=== PATIENT | male | born 1955 | race Caucasian/White ===

== ENCOUNTER 2022-03-03 13:36 | Inpatient (IN) | payer MEDICARE ==
[2022-03-03] MEDS ORDERED: Propofol 1,000 MG/100 ML VIAL IV ONE (13:42)
[2022-03-03] MEDS ORDERED: niCARdipine 25 MG/10 ML VIAL ONE (13:48)
[2022-03-03 13:57] LABS: #Eosinphils 0.2 thou/uL (0.0-0.7); #Lymphocytes 1.6 thou/uL (1.20-3.40); #Neutrophils 10.9 thou/uL (1.40-6.50); %Basophils 0.2 % (0.0-1.0); %Eosinophils 1.2 % (0.0-10.0); %Lymphocytes 11.4 % (21.0-51.0); %Monocytes 7.6 % (0.0-10.0); %Neutrophils 79.7 % (42.0-75.0); Hemoglobin 11.7 g/dL (14.0-18.0); Mean Corpuscular HGB CONC 32.8 g/dL (32.0-36.0); Mean Corpuscular Volume 94.4 fl (78.0-98.0); Mean Platelet Volume 7.9 fL (7.4-10.4); Platelet Count 267 thou/uL (130-400); RBC Distribution Width 11.8 % (11.5-14.5); Red Blood Cell (RBC) Count 3.77 mill/uL (4.70-6.10); White Blood Cell (WBC) Count 13.6 thou/uL (4.8-10.8)
[2022-03-03] MEDS ORDERED: Iopamidol-370 76% 500 ML 1 ML ONE (14:05)
[2022-03-03 14:11] LABS: PTT 29.6 sec (22.9-36.1); Prothrombin Time 13.7 sec (12.0-14.7)
[2022-03-03 14:28] LABS: ALT (SGPT) 33 U/L (8-55); AST (SGOT) 35 U/L (5-34); Alkaline Phosphatase 89 U/L (40-110); Anion Gap 17 mmol/L (10-20); BUN (Urea Nitrogen) 21 mg/dL (8.4-25.7); Bilirubin, Total 0.8 mg/dL (0.2-1.2); Calc. Creatinine Clearance 0 mL/min (70-130); Carbon Dioxide 22 mmol/L (23-31); Chloride 97 mmol/L (98-107); Estimated GFR 79; Globulin 2.9 g/dL (2.4-3.5); Glucose 287 mg/dL (80-115); Potassium 4.1 mmol/L (3.5-5.1); Protein, Total 6.9 g/dL (5.8-8.1); Sodium 132 mmol/L (136-145)
[2022-03-03 14:43] LABS: Actual Bicarbonate (HCO3a) 24.2 mEq/L (22-28); Base Excess (BEa) 0.5 mEq/L (-2.0 to +3.0); CO2 Tension 35.6 mmHg (35.0-45.0); Calcium, Ionized (arterial) 1.07 mmol/L (1.12-1.30); Carboxyhemoglobin (COHb) 0.3 gm% (0.0-3.0); Hemoglobin (Hb) 11.8 g/dL (14.0-18.0); O2 Tension (PaO2), arterial 111.1 mmHg (> 80.0); Potassium - ABG Lab 3.86 mmol/L (3.70-5.30); pH, Arterial 7.45 (7.35-7.45)
[2022-03-03 14:44] LABS: Puncture Site RBA
[2022-03-03] MEDS ORDERED: Ondansetron PF 4 MG/2 ML Vial IVP PRN (14:58)
[2022-03-03] MEDS ORDERED: Morphine 4 MG/ML VIAL SLOW IVP PRN (15:01)
[2022-03-03 15:14] LABS: SARS-CoV-2 NAA Rapid Test Not Detected (NotDetected)
[2022-03-03 15:42] LABS: Bacteria/HPF None Seen HPF (None Seen); Bilirubin Negative (Negative); Blood, Urine Negative (Negative); Clarity Clear (Clear); Glucose, Urine (Dipstick) 500 mg/dL (Negative); Ketone, Urine Trace mg/dL (Negative); Leukocyte Negative Leu/uL (Negative); Nitrite Negative (Negative); Protein, Urine (Dipstick) 50 mg/dL (Neg-Trace); RBC/HPF 0-3 HPF (0-3); Specific Gravity, Urine 1.011 (1.002-1.036); Squamous Epithelial None Seen HPF (0-3); Urobilinogen Normal mg/dL (Less than 2); WBC/HPF 0-3 HPF (0-3); pH, Urine 7.5 (5.0-9.0)
[2022-03-03] MEDS ORDERED: Lorazepam 2 MG/ML VIAL SLOW IVP PRN (16:04)
[2022-03-03] MEDS ORDERED: Propofol 1,000 MG/100 ML VIAL IV PRN (16:45)
[2022-03-03] MEDS ORDERED: Propofol BOLUS 1,000 MG/100 ML VIAL IV PRN (16:45)
[2022-03-03] MEDS ORDERED: levETIRAcetam 500 MG/5 ML VIAL SLOW IVP SCH (16:45)
[2022-03-03 16:58] LABS: Lactic Acid 2.2 mmol/L (0.5-2.2)
[2022-03-03] MEDS: niCARdipine 25 MG in Sodium Chloride 0.9% 250 ML 250 ML IVPB SCH ×2 (17:09→22:00)
[2022-03-03] MEDS: Sodium Chloride 0.9% 1,000 ML IV SCH (17:11)
[2022-03-03 17:18] LABS: Hemoglobin 11.5 g/dL (14.0-18.0); Mean Corpuscular HGB CONC 33.4 g/dL (32.0-36.0); Mean Corpuscular Volume 92.6 fl (78.0-98.0); Mean Platelet Volume 8.2 fL (7.4-10.4); Platelet Count 274 thou/uL (130-400); RBC Distribution Width 11.8 % (11.5-14.5); Red Blood Cell (RBC) Count 3.71 mill/uL (4.70-6.10); White Blood Cell (WBC) Count 20.3 thou/uL (4.8-10.8)
[2022-03-03 17:26] VITALS: BMI 29.3
[2022-03-03 17:32] LABS: Band 10 % (5-11); Lymphocytes 8 % (21-51); MDiff Complete? YES; Monocytes 8 % (0-10); Neutrophil 74 % (42-75); Ovalocytes SLIGHT = 2-5 cells (100X) (0-1/hpf); Platelet Morphology Comment Appears Adequate; Polychromasia SLIGHT = 2-3 cells (100X) (0-2/hpf)
[2022-03-03] MEDS: levETIRAcetam 500 MG/5 ML VIAL SLOW IVP SCH (21:53)
[2022-03-04] MEDS: Sodium Chloride 0.9% 1,000 ML IV SCH ×4 (04:28→20:58)
[2022-03-04 04:54] LABS: #Lymphocytes 0.9 thou/uL (1.20-3.40); #Monocytes 1.7 thou/uL (0.11-0.59); #Neutrophils 18.7 thou/uL (1.40-6.50); %Eosinophils 0.1 % (0.0-10.0); %Monocytes 7.8 % (0.0-10.0); Hemoglobin 10.8 g/dL (14.0-18.0); Mean Corpuscular HGB CONC 33.1 g/dL (32.0-36.0); Mean Corpuscular Hemoglobin 30.8 pg (27.0-31.0); Mean Corpuscular Volume 93.2 fl (78.0-98.0); Mean Platelet Volume 8.2 fL (7.4-10.4); Platelet Count 247 thou/uL (130-400); White Blood Cell (WBC) Count 21.3 thou/uL (4.8-10.8)
[2022-03-04 06:10] LABS: ALT (SGPT) 28 U/L (8-55); AST (SGOT) 25 U/L (5-34); Albumin 3.8 g/dL (3.4-4.8); Alkaline Phosphatase 81 U/L (40-110); Anion Gap 19 mmol/L (10-20); BUN (Urea Nitrogen) 19 mg/dL (8.4-25.7); Bilirubin, Total 1.1 mg/dL (0.2-1.2); Calc. Creatinine Clearance 81 mL/min (70-130); Calcium 9.2 mg/dL (7.8-10.44); Carbon Dioxide 22 mmol/L (23-31); Chloride 97 mmol/L (98-107); Estimated GFR 79; Globulin 2.8 g/dL (2.4-3.5); Glucose 367 mg/dL (80-115); Potassium 4.3 mmol/L (3.5-5.1); Protein, Total 6.6 g/dL (5.8-8.1); Sodium 134 mmol/L (136-145)
[2022-03-04] MEDS ORDERED: Dextrose 5% in Water 1,000 ML IV PRN (06:45)
[2022-03-04] MEDS ORDERED: HumaLOG 300 UNITS/3 ML VIAL SC PRN (06:45)
[2022-03-04] MEDS ORDERED: Dextrose 50% Abboject 50 ML SYRINGE IVP PRN (06:45)
[2022-03-04] MEDS: HumaLOG 300 UNITS/3 ML VIAL SC PRN ×4 (06:48→18:49)
[2022-03-04] MEDS ORDERED: FLU VACC QS2022-23(65YR UP)/PF 240 MCG/0.7 ML SYRINGE IM ONE (09:00)
[2022-03-04] MEDS: levETIRAcetam 500 MG/5 ML VIAL SLOW IVP SCH ×2 (09:07→20:57)
[2022-03-04] MEDS ORDERED: hydrALAZINE 20 MG/ML VIAL SLOW IVP PRN (11:05)
[2022-03-04] MEDS: Acetaminophen 650 MG/20.3 ML UDCUP PER TUBE PRN (13:24)
[2022-03-04] MEDS: niCARdipine 25 MG in Sodium Chloride 0.9% 250 ML 250 ML IVPB SCH (15:32)
[2022-03-04 16:23] LABS: Anion Gap 12 mmol/L (10-20); BUN (Urea Nitrogen) 18 mg/dL (8.4-25.7); Calc. Creatinine Clearance 76 mL/min (70-130); Calcium 8.6 mg/dL (7.8-10.44); Carbon Dioxide 25 mmol/L (23-31); Chloride 103 mmol/L (98-107); Estimated GFR 74; Glucose 324 mg/dL (80-115); Potassium 3.9 mmol/L (3.5-5.1); Sodium 136 mmol/L (136-145)
[2022-03-05] MEDS: Acetaminophen 650 MG/20.3 ML UDCUP PER TUBE PRN (01:36)
[2022-03-05] MEDS: Sodium Chloride 0.9% 1,000 ML IV SCH ×4 (01:37→16:58)
[2022-03-05] MEDS: HumaLOG 300 UNITS/3 ML VIAL SC PRN ×4 (01:39→18:29)
[2022-03-05] MEDS: niCARdipine 25 MG in Sodium Chloride 0.9% 250 ML 250 ML IVPB SCH ×2 (03:29→13:03)
[2022-03-05 04:20] LABS: #Lymphocytes 0.8 thou/uL (1.20-3.40); #Monocytes 1.4 thou/uL (0.11-0.59); #Neutrophils 13.8 thou/uL (1.40-6.50); %Basophils 0.1 % (0.0-1.0); %Lymphocytes 5.2 % (21.0-51.0); %Monocytes 8.5 % (0.0-10.0); %Neutrophils 86.2 % (42.0-75.0); Hemoglobin 10.4 g/dL (14.0-18.0); Mean Corpuscular HGB CONC 32.7 g/dL (32.0-36.0); Mean Corpuscular Hemoglobin 30.7 pg (27.0-31.0); Mean Platelet Volume 8.2 fL (7.4-10.4); Platelet Count 190 thou/uL (130-400); RBC Distribution Width 12.2 % (11.5-14.5); Red Blood Cell (RBC) Count 3.39 mill/uL (4.70-6.10)
[2022-03-05 04:29] LABS: Anion Gap 12 mmol/L (10-20); BUN (Urea Nitrogen) 17 mg/dL (8.4-25.7); Calc. Creatinine Clearance 87 mL/min (70-130); Calcium 8.4 mg/dL (7.8-10.44); Carbon Dioxide 25 mmol/L (23-31); Chloride 104 mmol/L (98-107); Estimated GFR 86; Glucose 276 mg/dL (80-115); Potassium 3.2 mmol/L (3.5-5.1); Sodium 138 mmol/L (136-145)
[2022-03-05 07:58] LABS: Actual Bicarbonate (HCO3a) 26.1 mEq/L (22-28); Base Excess (BEa) 2.3 mEq/L (-2.0 to +3.0); CO2 Tension 37.4 mmHg (35.0-45.0); Calcium, Ionized (arterial) 1.11 mmol/L (1.12-1.30); Carboxyhemoglobin (COHb) 0.3 gm% (0.0-3.0); Hemoglobin (Hb) 10.3 g/dL (14.0-18.0); O2 Tension (PaO2), arterial 112.3 mmHg (> 80.0); Potassium - ABG Lab 3.14 mmol/L (3.70-5.30); pH, Arterial 7.46 (7.35-7.45)
[2022-03-05 07:59] LABS: Puncture Site Arterial Line
[2022-03-05] MEDS: Pantoprazole 40 MG VIAL IVP SCH (08:59)
[2022-03-05] MEDS: levETIRAcetam 500 MG/5 ML VIAL SLOW IVP SCH ×2 (08:59→21:06)
[2022-03-05] MEDS ORDERED: Potassium Chloride 40 MEQ in Premix Bag 1 BAG IVPB SCH (09:30)
[2022-03-05] MEDS: Carvedilol 6.25 MG TAB PER TUBE SCH (17:42)
[2022-03-06] MEDS: HumaLOG 300 UNITS/3 ML VIAL SC PRN ×4 (01:28→17:38)
[2022-03-06] MEDS: Sodium Chloride 0.9% 1,000 ML IV SCH (03:19)
[2022-03-06 04:53] LABS: #Lymphocytes 0.8 thou/uL (1.20-3.40); #Monocytes 1.4 thou/uL (0.11-0.59); %Basophils 0.1 % (0.0-1.0); %Eosinophils 0.1 % (0.0-10.0); %Lymphocytes 4.7 % (21.0-51.0); %Monocytes 8.3 % (0.0-10.0); %Neutrophils 86.8 % (42.0-75.0); Hemoglobin 8.9 g/dL (14.0-18.0); Mean Corpuscular HGB CONC 31.1 g/dL (32.0-36.0); Mean Corpuscular Hemoglobin 29.7 pg (27.0-31.0); Mean Corpuscular Volume 95.6 fl (78.0-98.0); Mean Platelet Volume 7.9 fL (7.4-10.4); Platelet Count 193 thou/uL (130-400); White Blood Cell (WBC) Count 17.3 thou/uL (4.8-10.8)
[2022-03-06 05:17] LABS: Anion Gap 13 mmol/L (10-20); BUN (Urea Nitrogen) 15 mg/dL (8.4-25.7); Calc. Creatinine Clearance 97 mL/min (70-130); Calcium 8.4 mg/dL (7.8-10.44); Carbon Dioxide 25 mmol/L (23-31); Chloride 110 mmol/L (98-107); Estimated GFR 95; Glucose 192 mg/dL (80-115); Potassium 3.4 mmol/L (3.5-5.1); Sodium 145 mmol/L (136-145)
[2022-03-06 07:22] LABS: Actual Bicarbonate (HCO3a) 24.7 mEq/L (22-28); CO2 Tension 35.6 mmHg (35.0-45.0); Calcium, Ionized (arterial) 1.11 mmol/L (1.12-1.30); Hemoglobin (Hb) 9.3 g/dL (14.0-18.0); Potassium - ABG Lab 3.18 mmol/L (3.70-5.30); pH, Arterial 7.46 (7.35-7.45)
[2022-03-06] MEDS: Carvedilol 6.25 MG TAB PER TUBE SCH ×2 (09:04→17:13)
[2022-03-06] MEDS: levETIRAcetam 500 MG/5 ML VIAL SLOW IVP SCH ×2 (09:04→21:21)
[2022-03-06] MEDS: Pantoprazole 40 MG VIAL IVP SCH (09:04)
[2022-03-06] MEDS ORDERED: Electrolyte Replacement Protocol 1 EACH FS ONE (09:25)
[2022-03-06] MEDS ORDERED: Potassium Chloride 40 MEQ in Premix Bag 1 BAG IVPB SCH ×2 (09:30→19:30)
[2022-03-06] MEDS ORDERED: Electrolyte Replacement Protocol FS PRN (10:00)
[2022-03-06] MEDS: Sodium Chloride 0.45% 1,000 ML IV SCH ×2 (10:05→19:55)
[2022-03-06] MEDS: Potassium Chloride 20 MEQ in Premix Bag 1 BAG IVPB SCH ×2 (10:33→12:10)
[2022-03-06 18:20] LABS: Potassium 3.5 mmol/L (3.5-5.1)
[2022-03-07] MEDS: HumaLOG 300 UNITS/3 ML VIAL SC PRN ×4 (00:27→17:47)
[2022-03-07 03:33] LABS: #Eosinphils 0.1 thou/uL (0.0-0.7); #Lymphocytes 0.7 thou/uL (1.20-3.40); #Monocytes 0.9 thou/uL (0.11-0.59); #Neutrophils 9.9 thou/uL (1.40-6.50); %Basophils 0.1 % (0.0-1.0); %Eosinophils 0.4 % (0.0-10.0); %Lymphocytes 6.3 % (21.0-51.0); %Monocytes 7.9 % (0.0-10.0); %Neutrophils 85.3 % (42.0-75.0); Hemoglobin 8.9 g/dL (14.0-18.0); Mean Corpuscular HGB CONC 32.9 g/dL (32.0-36.0); Mean Corpuscular Hemoglobin 31.5 pg (27.0-31.0); Mean Corpuscular Volume 95.8 fl (78.0-98.0); Mean Platelet Volume 8.3 fL (7.4-10.4); Platelet Count 177 thou/uL (130-400); RBC Distribution Width 12.2 % (11.5-14.5); White Blood Cell (WBC) Count 11.6 thou/uL (4.8-10.8)
[2022-03-07 03:54] LABS: ALT (SGPT) 10 U/L (8-55); AST (SGOT) 7 U/L (5-34); Albumin 2.8 g/dL (3.4-4.8); Alkaline Phosphatase 55 U/L (40-110); Anion Gap 11 mmol/L (10-20); BUN (Urea Nitrogen) 15 mg/dL (8.4-25.7); Bilirubin, Total 0.6 mg/dL (0.2-1.2); Calc. Creatinine Clearance 98 mL/min (70-130); Calcium 8.1 mg/dL (7.8-10.44); Carbon Dioxide 26 mmol/L (23-31); Chloride 111 mmol/L (98-107); Estimated GFR 96; Globulin 2.8 g/dL (2.4-3.5); Glucose 205 mg/dL (80-115); Potassium 3.7 mmol/L (3.5-5.1); Protein, Total 5.6 g/dL (5.8-8.1); Sodium 144 mmol/L (136-145)
[2022-03-07 04:00] LABS: Phosphorus 1.5 mg/dL (2.3-4.7)
[2022-03-07] MEDS ORDERED: PHOS-NAK 1 PKT PACK PER TUBE SCH (04:30)
[2022-03-07 06:07] LABS: Potassium 3.7 mmol/L (3.5-5.1)
[2022-03-07] MEDS ORDERED: Magnesium 2 GM/50 ML(in water) 2 GM in Premix Bag 1 BAG IVPB SCH (08:00)
[2022-03-07] MEDS: Pantoprazole 40 MG VIAL IVP SCH (08:33)
[2022-03-07] MEDS: Sodium Chloride 0.45% 1,000 ML IV SCH ×2 (08:33→17:39)
[2022-03-07] MEDS: Carvedilol 6.25 MG TAB PER TUBE SCH ×2 (08:34→17:38)
[2022-03-07] MEDS: levETIRAcetam 500 MG/5 ML VIAL SLOW IVP SCH ×2 (08:34→20:45)
[2022-03-07] MEDS: PHOS-NAK 1 PKT PACK PO SCH ×4 (08:34→20:45)
[2022-03-07 08:35] LABS: Actual Bicarbonate (HCO3a) 23.8 mEq/L (22-28); Base Excess (BEa) 0.6 mEq/L (-2.0 to +3.0); CO2 Tension 32.8 mmHg (35.0-45.0); Calcium, Ionized (arterial) 1.12 mmol/L (1.12-1.30); Carboxyhemoglobin (COHb) 0.3 gm% (0.0-3.0); Hemoglobin (Hb) 9.1 g/dL (14.0-18.0); O2 Tension (PaO2), arterial 74.5 mmHg (> 80.0); Potassium - ABG Lab 3.59 mmol/L (3.70-5.30); pH, Arterial 7.48 (7.35-7.45)
[2022-03-07 08:39] LABS: Puncture Site RRA
[2022-03-07] MEDS ORDERED: Polyethylene Glycol 3350 17 GM Packet PO SCH (15:45)
[2022-03-08] MEDS: Sodium Chloride 0.45% 1,000 ML IV SCH ×2 (00:32→12:21)
[2022-03-08 05:13] LABS: Hemoglobin 6.9 g/dL (14.0-18.0); Mean Corpuscular HGB CONC 32.3 g/dL (32.0-36.0); Mean Platelet Volume 8.6 fL (7.4-10.4); Platelet Count 143 thou/uL (130-400); RBC Distribution Width 12.1 % (11.5-14.5); Red Blood Cell (RBC) Count 2.23 mill/uL (4.70-6.10); White Blood Cell (WBC) Count 8.3 thou/uL (4.8-10.8)
[2022-03-08 05:18] LABS: #Eosinphils 0.1 thou/uL (0.0-0.7); #Lymphocytes 0.8 thou/uL (1.20-3.40); #Monocytes 0.7 thou/uL (0.11-0.59); #Neutrophils 6.5 thou/uL (1.40-6.50); %Basophils 0.4 % (0.0-1.0); %Eosinophils 1.3 % (0.0-10.0); %Lymphocytes 9.5 % (21.0-51.0); %Monocytes 8.2 % (0.0-10.0); %Neutrophils 80.6 % (42.0-75.0); Hemoglobin 6.9 g/dL (14.0-18.0); Mean Corpuscular HGB CONC 32.2 g/dL (32.0-36.0); Mean Corpuscular Hemoglobin 30.9 pg (27.0-31.0); Mean Platelet Volume 8.7 fL (7.4-10.4); Platelet Count 138 thou/uL (130-400); RBC Distribution Width 12.2 % (11.5-14.5); Red Blood Cell (RBC) Count 2.23 mill/uL (4.70-6.10); White Blood Cell (WBC) Count 8.1 thou/uL (4.8-10.8)
[2022-03-08 05:48] LABS: ALT (SGPT) 10 U/L (8-55); AST (SGOT) 10 U/L (5-34); Albumin 2.3 g/dL (3.4-4.8); Alkaline Phosphatase 52 U/L (40-110); Anion Gap 9 mmol/L (10-20); BUN (Urea Nitrogen) 25 mg/dL (8.4-25.7); Bilirubin, Total 0.8 mg/dL (0.2-1.2); Calc. Creatinine Clearance 67 mL/min (70-130); Calcium 7.7 mg/dL (7.8-10.44); Carbon Dioxide 27 mmol/L (23-31); Chloride 110 mmol/L (98-107); Estimated GFR 65; Globulin 2.6 g/dL (2.4-3.5); Glucose 217 mg/dL (80-115); Magnesium 2.3 mg/dL (1.6-2.6); Phosphorus 4.9 mg/dL (2.3-4.7); Potassium 4.2 mmol/L (3.5-5.1); Protein, Total 4.9 g/dL (5.8-8.1); Sodium 142 mmol/L (136-145)
[2022-03-08] MEDS: Pantoprazole 40 MG VIAL IVP SCH (08:14)
[2022-03-08] MEDS: Carvedilol 6.25 MG TAB PER TUBE SCH (08:14)
[2022-03-08] MEDS: levETIRAcetam 500 MG/5 ML VIAL SLOW IVP SCH (08:14)
[2022-03-08] MEDS ORDERED: Polyethylene Glycol 3350 17 GM Packet PO SCH (09:00)
[2022-03-08 11:16] VITALS: BP 44/31
[2022-03-08 12:18] VITALS: TEMP 99.1
[2022-03-08] MEDS ORDERED: Morphine 4 MG/ML VIAL SLOW IVP PRN (13:00)
[2022-03-08] MEDS ORDERED: Midazolam HCl 2 mg/2 ml Vial IVP PRN (13:12)
== END 2022-03-08 13:29 | disposition expired | DRG 82 ==
LOC: ERS 13:36 → SUATTDRO 13:36 → CCU 16:28
PROVIDERS: ADMIT Internal Medicine; ATTEND Internal Medicine
PROC: 5A1955Z Respiratory Ventilation, Greater than 96 Consecutive Hours (ICD-10-PCS; principal; 2022-03-03)
PROC: 0D9670Z Drainage of Stomach with Drainage Device, Via Natural or Artificial Opening (ICD-10-PCS; 2022-03-03)
PROC: 06HY33Z Insertion of Infusion Device into Lower Vein, Percutaneous Approach (ICD-10-PCS; 2022-03-03)
PROC: 04HY32Z Insertion of Monitoring Device into Lower Artery, Percutaneous Approach (ICD-10-PCS; 2022-03-03)
DX: Z66 Do not resuscitate; Z51.5 Encounter for palliative care; Z20.822 Contact with and (suspected) exposure to COVID-19; G93.41 Metabolic encephalopathy; S06.A1XA Traumatic brain compression with herniation, initial encounter; J96.01 Acute respiratory failure with hypoxia; S22.32XA Fracture of one rib, left side, initial encounter for closed fracture; S12.600A Unspecified displaced fracture of seventh cervical vertebra, initial encounter for closed fracture; I25.10 Atherosclerotic heart disease of native coronary artery without angina pectoris; E78.5 Hyperlipidemia, unspecified; E11.9 Type 2 diabetes mellitus without complications; I10 Essential (primary) hypertension; G93.89 Other specified disorders of brain; S02.40FA Zygomatic fracture, left side, initial encounter for closed fracture; R40.2312 Coma scale, best motor response, none, at arrival to emergency department; R40.2112 Coma scale, eyes open, never, at arrival to emergency department; R40.2212 Coma scale, best verbal response, none, at arrival to emergency department; W17.89XA Other fall from one level to another, initial encounter; E87.6 Hypokalemia; Y92.69 Other specified industrial and construction area as the place of occurrence of the external cause; Z28.21 Immunization not carried out because of patient refusal; Z86.16 Personal history of COVID-19; Z95.1 Presence of aortocoronary bypass graft; Z79.899 Other long term (current) drug therapy; Z79.82 Long term (current) use of aspirin; Z79.84 Long term (current) use of oral hypoglycemic drugs; I95.9 Hypotension, unspecified
CPT/HCPCS: 36415; 36416; 36600; 51702; 70450; 70496; 70498; 71045; 71260; 72125; 72170; 74177; 80048; 80053; 81003; 81015; 82550; 82805; 83605; 83735; 84100; 84484; 85025; 85027; 85610; 85730; 86850; 86900; 86901; 94002; 94003; 96365; 96366; 99292; C9113; G0390; J0360; J1815; J1953; J2060; J2270; J2704; J3475; J3480; J7050; Q9967; U0002